=== PATIENT | female | born 1980 | race Caucasian/White ===

== ENCOUNTER 2024-12-13 10:28 | Emergency (ER) | payer BC, SELFPAY ==
[2024-12-13 10:29] VITALS: BMI 29.2
[2024-12-13 11:21] VITALS: BP 139/97; PULSE 82; RESP 18; TEMP 37; O2SAT 98; BMI 31.8
--- NOTE | 2024-12-13 11:34 | XR_ITS ---
Examination: Pelvic ultrasound, transabdominal, complete Technique: Transabdominal ultrasound of the pelvis performed using grayscale imaging Date and time of exam: December 13, 2019 5039 hrs. Indications: Right-sided pelvic pain beginning 3 days ago Findings: Uterus 8.4 x 5.1 x 6.4 cm No bladder mass or intrauterine gestation. Endometrial stripe 0.8 cm Right ovary 3.4 x 2.5 x 2.5 cm arterial flow, 28 mm x 18 mm cyst and smaller cyst Left ovary obscured by bowel gas Impression: No uterine mass or intrauterine gestation Small right ovarian cysts
--- NOTE | 2024-12-13 11:35 | EDRME_ITS ---
Rapid Medical Screening Exam COUNTS INCLUDE 234 BEDS AT THE [facility] Arrival date/time: 12/13/24 10:28 44-year-old female presents to the emergency department with complaints of right lower quadrant abdominal pain radiates to her left. History of ovarian cyst. No fever. I have greeted and performed a focused initial assessment of this patient. Initial appropriate labs ordered at this time. A comprehensive ED assessment and evaluation of the patient and analysis of all test and completion of medical decision making process will be conducted by additional ED provider. Chief Complaint: Abdominal Pain Time Seen by Provider: 12/13/24 11:13 Vital signs: Vital Signs Temperature 98.6 F 12/13/24 11:21 Pulse Rate 82 12/13/24 11:21 Respiratory Rate 18 12/13/24 11:21 Blood Pressure 139/97 H 12/13/24 11:21 Pulse Oximetry (%) 98 12/13/24 11:21 Oxygen Delivery Method Room Air 12/13/24 11:21
[2024-12-13 12:55] LABS: Basophils # (Auto) 0.1 Thou/mm3 (0.0-0.2); Basophils % (Auto) 0 % (0-2.5); Eosinophils # (Auto) 0.1 Thou/mm3 (0.0-0.5); Eosinophils % (Auto) 1 % (0-10); Hematocrit 44.2 % (36.0-46.0); Hemoglobin 14.9 g/dL (12.0-16.0); Immature Granulocytes % (Auto) 0 % (0-0); Immature Granulocytes Auto 0.04 Thou/mm3 (0.00-0.00); Lymphocytes # (Auto) 1.6 Thou/mm3 (1.0-4.8); Lymphocytes % (Auto) 12 % (10-50); Mean Corpuscular HGB Conc 33.7 g/dl (31.0-37.0); Mean Corpuscular Volume 89 fL (80-100); Monocytes # (Auto) 0.6 Thou/mm3 (0.0-0.8); Monocytes % (Auto) 4 % (0-12); Neutrophils # (Auto) 11.1 Thou/mm3 (1.8-7.7); Neutrophils % (Auto) 82 % (37-80); Nucleated Red Blood Cell % 0 /100 WBC (0); Platelet Count 379 Thou/mm3 (140-440); RDW Standard Deviation 41.3 fL (36.4-46.3); Red Blood Count 4.96 Miln/mm3 (4.00-5.20); White Blood Count 13.5 Thou/mm3 (3.6-11.0)
[2024-12-13 13:20] LABS: Alanine Aminotransferase 17 U/L (10-49); Albumin, Serum 5.1 gm/dL (3.5-5.0); Albumin/Globulin Ratio 1.8 (1.2-2.2); Alkaline Phosphatase 92 U/L (46-116); Anion Gap 6 (7-16); Aspartate Amino Transferase 14 U/L (0-34); BUN/Creatinine Ratio 14 Ratio (12-20); Bilirubin,Total 0.6 mg/dL (0.3-1.2); Blood Urea Nitrogen 11 mg/dL (9-23); Carbon Dioxide 27.6 mMol/L (20.0-31.0); Chloride 105 mMol/L (98-107); Creatinine (Component) 0.8 mg/dL (0.6-1.3); Estimated Creatinine Clearance 93.2 mL/min (>60); Globulin 2.8 gm/dL (2.3-3.5); Glucose 102 mg/dL (74-106); Lipase 38 U/L (12-53); Osmolality,Calculated 276 (275-295); Potassium 4.3 mMol/L (3.4-5.1); Sodium 139 mMol/L (136-145); Total Protein 7.9 gm/dL (5.7-8.2); eGFR > 60 See Note
--- NOTE | 2024-12-13 14:34 | PD.EDABDPN ---
ED Abdominal Pain RME/HPI General Chief Complaint: Abdominal Pain Stated complaint: RLQ ABD PAIN X 3DAYS Time seen by provider: 12/13/24 11:13 Arrival date/time: 12/13/24 10:28 44-year-old female presents to the emergency department with complaints of right lower quadrant abdominal pain radiates to her left. History of ovarian cyst. No fever. RME / HPI RME / HPI narrative: 12/13/24 10:28 44-year-old female presents to the emergency department with complaints of right lower quadrant abdominal pain radiates to her left. History of ovarian cyst. No fever. I have greeted and performed a focused initial assessment of this patient. Initial appropriate labs ordered at this time. A comprehensive ED assessment and evaluation of the patient and analysis of all test and completion of medical decision making process will be conducted by additional ED provider. Related Data Home Medications ?Medication ?Instructions ?Recorded ?Confirmed atorvastatin 10 mg tablet (Lipitor) 10 mg PO QPM 01/31/21 08/27/23 amlodipine 5 mg tablet 5 mg PO QDAY 08/27/23 08/28/23 norethindrone (contraceptive) 0.35 0.35 mg PO QDAY 08/27/23 08/27/23 mg tablet propranolol 10 mg tablet 5 mg PO BID 08/27/23 08/28/23 spironolactone 50 mg tablet 50 mg PO QAM 08/27/23 08/27/23 Previous Rx's ?Medication ?Instructions ?Recorded ibuprofen 800 mg tablet (IBU) 800 mg PO Q8H #20 tabs 12/13/24 Allergies Allergy/AdvReac Type Severity Reaction Status Date / Time Penicillins Allergy Unknown Rash Verified 12/13/24 10:31 ciprofloxacin (From Cipro) Allergy Rash Verified 12/13/24 10:31 minocycline Allergy Rash Verified 12/13/24 10:31 Review of Systems Review of Systems Systems Reviewed: All systems reviewed, normal except as documented Narrative Review of Systems: Gen: No fever, no chills, no weight loss EYES: No discharge, no visual changes, no pain HEENT: No ear pain, no congestion, no sore throat PULM: No shortness of breath, no cough, no congestion CV: No chest pain, no dyspnea on exertion, no palpitations GI: No nausea, no vomiting, no diarrhea, +abd pain, no constipation : No frequency, no urgency,? no dysuria Musc/skel: No joint pain, no back pain Skin: No rash? Psyc: No hallucinations, no depression Heme/Lymph: No easy bleeding or bruising tendencies Neuro: No weakness, no headache ED Exam Narrative Physical exam: General: Sittiing in Exam table in no acute distress, answering questions appropriately HENT: normocephalic, atraumatic, EOMI, PERRLA, moist mucous membranes Chest: chest wall is nontender Cardiac: regular rate and rhythm, normal S1 and S2, no murmurs, rubs, or gallops, capillary refill ?2 seconds Pulmonary: clear to auscultation bilaterally, no wheezing, crackles, or rhonchi Abdominal: active bowel sounds, soft, nontender, nondistended Neuro: A&OX3, CN II-XII intact, sensation grossly intact bilaterally in UE and LE. Skin: no rashes, no ecchymosis Ext: no lower extremity edema Course Quality Measures none Orders Category Date Time Status US pelvic complete Stat Exams 12/13/24 11:34 Completed CBC Stat Lab 12/13/24 12:17 Completed Comprehensive Metabolic Panel Stat Lab 12/13/24 12:17 Completed HCG Qualitative,Urine Stat Lab 12/13/24 15:30 Completed Lipase Stat Lab 12/13/24 12:17 Completed Urinalysis Stat Lab 12/13/24 15:30 Completed Vital Signs Vital signs: Vital Signs Temperature 98.6 F 12/13/24 11:21 Pulse Rate 82 12/13/24 11:21 Respiratory Rate 18 12/13/24 11:21 Blood Pressure 139/97 H 12/13/24 11:21 Pulse Oximetry (%) 98 12/13/24 11:21 Oxygen Delivery Method Room Air 12/13/24 11:21 Abdominal Pain MDM MDM Narrative MDM Narrative:: 44-year-old female presents emergency department with intermittent right lower quadrant abdominal pain for over 7 days. Patient has a history of ovarian cyst. Patient is requesting a follow-up and ultrasound due to her ovarian cyst. Patient had a full workup labs, urine and ultrasound. Patient's labs did not demonstrate any leukocytosis no bandemia no anemia. CMP reassuring. Ultrasound demonstrated small follicular cyst on the right side. Advised this can be followed up outpatient, antipyretic or Tylenol for pain control. Strict ER precautions to return if there is any worsening symptoms or change in condition. Patient data External records reviewed:: [facility] previous records Clinical information provided by:: patient Social determinants that could affect healthcare access:: none Patient has the following chronic illnesses:: none How is presenting disease/condition affected by chronic disease/condition?: no chronic disease Evaluation data The following diagnostics were reviewed and interpreted by me:: radiology exam(s) Lab and/or radiology exams considered but not ordered:: none Interpretation Summary: Examination: Pelvic ultrasound, transabdominal, complete Technique: Transabdominal ultrasound of the pelvis performed using grayscale imaging Date and time of exam: December 13, 2019 5039 hrs. Indications: Right-sided pelvic pain beginning 3 days ago Findings: Uterus 8.4 x 5.1 x 6.4 cm No bladder mass or intrauterine gestation. Endometrial stripe 0.8 cm Right ovary 3.4 x 2.5 x 2.5 cm arterial flow, 28 mm x 18 mm cyst and smaller cyst Left ovary obscured by bowel gas Impression: No uterine mass or intrauterine gestation Small right ovarian cysts Medications / Prescriptions Medications or Prescriptions considered but not ordered:: none Medication administrations:: none Consultations Consultation(s) initiated? (list below): No Diagnosis Differential diagnosis abdominal pain: abdominal pain, constipation, gastroenteritis, pancreatitis and small bowel obstruction Most likely diagnosis given after review of the tests above:: Ovarian cyst Admission Indicated Admission indicated?: not indicated Explain why admission is indicated or not indicated:: none Admission Request Was there a request for admission?: No Disposition Plan Disposition Plan: Discharge Discharge Attestation Discharge Attestation: The patient and all family members were given an opportunity to ask questions and understood the discharge instructions. Discharge instructions specifically effects, indications for sooner follow up or return to the emergency department, and the expected course of current diagnosis. Patient condition: Stable Discharge Plan Plan Patient Disposition: HOME (Self Care) Patient condition on transfer: Stable Prescriptions/Referrals Prescriptions/Med Rec: New ibuprofen [IBU] 800 mg tablet 800 mg PO Q8H Qty: 20 0RF No Action atorvastatin [Lipitor] 10 mg Tablet 10 mg PO QPM amlodipine 5 mg Tablet 5 mg PO QDAY propranolol 10 mg Tablet 5 mg PO BID norethindrone (contraceptive) 0.35 mg Tablet 0.35 mg PO QDAY spironolactone 50 mg Tablet 50 mg PO QAM Referrals: ROSEANNA COLLIER [Primary Care Provider] - In 1 week Problem List Clinical Impression: Ovarian cyst Patient/Caregiver Discharge Instructions Discharge Activity: activity as tolerated Education Materials: ED Ovarian Cyst Additional Instructions: You have been diagnosed with an ovarian cyst, which is a fluid-filled sac that develops on or inside the ovary. Most ovarian cysts are benign and resolve on their own. Pain Management: Take [id number] pain relievers such as ibuprofen (Advil, Motrin) or acetaminophen (Tylenol) as needed for discomfort. Follow dosing instructions carefully. Apply a warm compress or heating pad to your lower abdomen to help relieve cramps or pain. Activity: Avoid strenuous activities that could cause the cyst to rupture or twist (e.g., heavy lifting, intense exercise). Resume normal activities as tolerated and avoid anything that worsens your symptoms. Print Language: Malay Stand Alone Forms: Sheela Award Info., Patient Portal Info Letter PA/FERNANDO Supervising Physician DONNELL/FERNANDO Supervising Physician: dr Steinberg
[2024-12-13 16:02] LABS: Collection Type, Urine Clean Catch
[2024-12-13 16:42] LABS: HCG Qualitative,Urine Negative
[2024-12-13 16:54] LABS: Bacteria,Urine Rare; Bilirubin,Urine Negative (Negative); Blood,Urine Negative (Negative); Clarity,Urine Clear (Clear/Hazy); Color,Urine Lt-Yellow (Lt Yel-Yel); Glucose, Urine Negative (Negative); Ketones,Urine Negative (Negative); Leukocyte Esterase,Urine Negative (Negative); Nitrite,Urine Negative (Negative); PH,Urine 6.5 (5.0-7.0); Protein,Urine Negative (Neg - Trace); RBC,Urine 1 /hpf (0-3); Specific Gravity,Urine 1.013 (1.001-1.035); Squamous Epithelial Cell,Urine 6 /hpf (0-5); Urobilinogen,Urine Negative mg/dL (0.0-1.0); WBC,Urine 1 /hpf (0-5)
== END 2024-12-13 16:19 | disposition home or self-care (01) ==
PROVIDERS: Nurse Practitioner Primary Care; Emergency Provider Emergency Medicine; PCP Nurse Practitioner Family
DX: N83.201 Unspecified ovarian cyst, right side (principal)
CPT/HCPCS: 36415; 76856; 80053; 81001; 81025; 83690; 85025; 99284